=== PATIENT | male | born 1995 | race Caucasian/White ===

== ENCOUNTER 2017-06-23 18:55 | Emergency (ER) | payer BC ==
[2017-06-23] VITALS (7 sets, daily range): BP systolic 115–148; BP diastolic 65–88; PULSE 60–78; RESP 16–20; TEMP 98.8; O2SAT 99–100
[2017-06-23] MEDS ORDERED: ASPIRIN 325 MG TAB PO ONE (19:30)
[2017-06-23] MEDS ORDERED: SODIUM CHLORIDE 0.9% FLUSH 10 ML FLUSH IVF PRN (19:30)
[2017-06-23 19:45] LABS: AUTOMATED NEUTROPHIL # 5.4 TH/MM3 (1.8-7.7); BASOPHIL % 0.5 % (0.0-2.0); EOSINOPHIL # 0.1 TH/MM3 (0-0.4); EOSINOPHIL % 0.9 % (0.0-4.0); HEMATOCRIT 43.3 % (39.0-51.0); HEMOGLOBIN 14.1 GM/DL (13.0-17.0); LYMPH % 25.2 % (9.0-44.0); LYMPHOCYTE # 2.2 TH/MM3 (1.0-4.8); MEAN CELL VOLUME 86.1 FL (80.0-100.0); MEAN CORPUSCULAR HGB CONC 32.5 % (32.0-36.0); MEAN PLATELET VOLUME 7.4 FL (7.0-11.0); MONO % 11.3 % (0.0-8.0); NEUT % 62.1 % (16.0-70.0); PLATELET COUNT 335 TH/MM3 (150-450); RED BLOOD COUNT 5.02 MIL/MM3 (4.50-5.90); RED CELL DISTRIBUTION WIDTH 12.6 % (11.6-17.2); WHITE BLOOD COUNT 8.7 TH/MM3 (4.0-11.0)
[2017-06-23 20:05] LABS: CHLORIDE 106 MEQ/L (98-107); SODIUM (NA) 140 MEQ/L (136-145)
[2017-06-23 20:08] LABS: BICARBONATE 30.9 MEQ/L (21.0-32.0); BLOOD UREA NITROGEN 12 MG/DL (7-18); GLUCOSE,RANDOM 61 MG/DL (74-106); MAGNESIUM 2.1 MG/DL (1.5-2.5)
[2017-06-23 20:11] LABS: CREATININE 0.77 MG/DL (0.60-1.30); GLOMERULAR FILTRATION RATE 125 ML/MIN (>89)
[2017-06-23 20:16] LABS: TROPONIN I LESS THAN 0.02 NG/ML (0.02-0.05)
--- NOTE | 2017-06-23 20:24 | PD ---
HPI Chief Complaint: Chest Pain Time Seen by Provider: 19:24 Travel History International Travel<30 days: No Contact w/Intl Traveler<30days: No Traveled to known affect area: No History of Present Illness HPI 22-year-old male describes left-sided chest pain since yesterday. He denies pleuritic chest pain. There is no exertional component. The pain is located in the left chest towards the shoulder anteriorly. He has no shortness of breath fever or cough. No similar prior episodes. 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 PFSH Past Surgical History Other Surgery: Yes (EAR) Social History Alcohol Use: Yes Tobacco Use: Yes (1/2PPD) Substance Use: No Allergies-Medications (Allergen,Severity, Reaction): Coded Allergies: No Known Allergies (Unverified , 06/23/17) Reported Meds & Prescriptions Reported Meds & Active Scripts Active Ibuprofen 600 Mg Tab 600 Mg PO Q8HR PRN 14 Days Review of Systems Except as stated in HPI: all other systems reviewed are Neg General / Constitutional: No: Fever HENT: No: Headaches Physical Exam Narrative GENERAL: 22-year-old male well-nourished well-developed pleasant Vital Signs Date Time Temp Pulse Resp B/P (MAP) Pulse Ox O2 Delivery O2 Flow Rate FiO2 06/23/17 19:54 69 16 136/87 (103) 99 Room Air 06/23/17 19:43 Room Air 06/23/17 19:43 100 Room Air 06/23/17 19:28 Room Air 06/23/17 19:24 76 16 148/88 (108) 100 Room Air 06/23/17 19:11 98.8 78 20 121/72 (88) 100 SKIN: Warm and dry. HEAD: Atraumatic. Normocephalic. EYES: Pupils equal and round. No scleral icterus. No injection or drainage. ENT: No nasal bleeding or discharge. Mucous membranes pink and moist. NECK: Trachea midline. No JVD. CARDIOVASCULAR: Regular rate and rhythm. RESPIRATORY: No accessory muscle use. Clear to auscultation. Breath sounds equal bilaterally. GASTROINTESTINAL: Abdomen soft, non-tender, nondistended. Hepatic and splenic margins not palpable. MUSCULOSKELETAL: Extremities without clubbing, cyanosis, or edema. No obvious deformities. NEUROLOGICAL: Awake and alert. No obvious cranial nerve deficits. Motor grossly within normal limits. Five out of 5 muscle strength in the arms and legs. Normal speech. PSYCHIATRIC: Appropriate mood and affect; insight and judgment normal. Data Data Last Documented VS Vital Signs Date Time Temp Pulse Resp B/P (MAP) Pulse Ox O2 Delivery O2 Flow Rate FiO2 06/23/17 19:54 69 16 136/87 (103) 99 Room Air 06/23/17 19:11 98.8 Orders Orders Electrocardiogram (06/23/17 19:24) Basic Metabolic Panel (Bmp) (06/23/17 19:24) Complete Blood Count With Diff (06/23/17 19:24) Magnesium (Mg) (06/23/17 19:24) Ecg Monitoring (06/23/17 19:24) Bilateral Bp Monitoring (06/23/17 19:24) Iv Access Insert/Monitor (06/23/17 19:24) Oximetry (06/23/17 19:24) Oxygen Administration (06/23/17 19:24) Aspirin (Aspirin) (06/23/17 19:30) Sodium Chloride 0.9% Flush (Ns Flush) (06/23/17 19:30) Chest, Pa & Lat (06/23/17 19:24) Westergren Sedimentation Rate (06/23/17 19:52) Troponin I (06/23/17 19:35) Labs Laboratory Tests Test 06/23/17 19:35 White Blood Count 8.7 TH/MM3 Red Blood Count 5.02 MIL/MM3 Hemoglobin 14.1 GM/DL Hematocrit 43.3 % Mean Corpuscular Volume 86.1 FL Mean Corpuscular Hemoglobin 28.0 PG Mean Corpuscular Hemoglobin Concent 32.5 % Red Cell Distribution Width 12.6 % Platelet Count 335 TH/MM3 Mean Platelet Volume 7.4 FL Neutrophils (%) (Auto) 62.1 % Lymphocytes (%) (Auto) 25.2 % Monocytes (%) (Auto) 11.3 % Eosinophils (%) (Auto) 0.9 % Basophils (%) (Auto) 0.5 % Neutrophils # (Auto) 5.4 TH/MM3 Lymphocytes # (Auto) 2.2 TH/MM3 Monocytes # (Auto) 1.0 TH/MM3 Eosinophils # (Auto) 0.1 TH/MM3 Basophils # (Auto) 0.0 TH/MM3 CBC Comment DIFF FINAL Differential Comment Erythrocyte Sedimentation Rate 1 mm/hr Blood Urea Nitrogen 12 MG/DL Creatinine 0.77 MG/DL Random Glucose 61 MG/DL Calcium Level 9.0 MG/DL Magnesium Level 2.1 MG/DL Sodium Level 140 MEQ/L Potassium Level 3.4 MEQ/L Chloride Level 106 MEQ/L Carbon Dioxide Level 30.9 MEQ/L Anion Gap 3 MEQ/L Estimat Glomerular Filtration Rate 125 ML/MIN Troponin I LESS THAN 0.02 NG/ML MDM Medical Decision Making Medical Screen Exam Complete: Yes Emergency Medical Condition: Yes Medical Record Reviewed: Yes Differential Diagnosis NSTEMI, unstable angina, coronary vasospasm, PE, PTX, aortic dissection, pericarditis, myocarditis, endocarditis, PNA, esophageal disease, aneurysm, musculoskeletal etiologies, anxiety, cocaine/sympathomimetic abuse Narrative Course CBC & BMP Diagram 06/23/17 19:35 Calcium Level 9.0, Magnesium Level 2.1 Troponin is less than 0.[address] elevations and LA depressions in multiple leads initially concerning for pericarditis ESR 1 Pt stable for discharge. Presentation concerning for pericarditis. No sign impaired cardiac output on exam. Scripts as below. Pt verbalized understanding of return precautions and expected disease course. Diagnosis Primary Impression: Chest pain Qualified Codes: R07.9 - Chest pain, unspecified Additional Impression: Pericarditis Qualified Codes: I31.9 - Disease of pericardium, unspecified Referrals: Albert Wilson MD call for appointment Primary Care Physician call for appointment Med/Other Pt SpecificInfo: Prescription(s) given Scripts Colchicine (Colchicine) 0.6 Mg Tab 0.6 MG PO DAILY for Gout for 90 Days, #90 TAB 0 Refills Prov: Roberto Durbin MD 06/23/17 Ibuprofen (Ibuprofen) 600 Mg Tab 600 MG PO Q8HR Y for PAIN for 14 Days, TAB 0 Refills Prov: Roberto Durbin MD 06/23/17 Disposition: 01 DISCHARGE HOME Condition: Stable Roberto Durbin MD Jun 23, 2017 20:24
[2017-06-23] MEDS ORDERED: IBUP-232 PO (20:32)
[2017-06-23] MEDS ORDERED: COLC1TAB15 PO (20:36)
--- NOTE | 2017-06-23 20:48 | RADRPT ---
EXAM DATE/TIME: 06/23/2017 19:46 [facility] COMPARISON: No previous studies available for comparison. INDICATIONS : Chest pain. MEDICAL HISTORY : None. SURGICAL HISTORY : None. ENCOUNTER: Initial ACUITY: 1 day PAIN SCORE: 6/10 LOCATION: Bilateral chest FINDINGS: PA and lateral views of the chest demonstrate the lungs to be symmetrically aerated without evidence of mass, infiltrate or effusion. The cardiomediastinal contours are unremarkable. Osseous structure s are intact. CONCLUSION: No acute disease. Pavan Lyn MD on June 23, 2017 at 20:46 Board Certified Radiologist. This report was verified electronically.
--- NOTE | 2017-06-24 14:26 | EKG ---
Date Performed: 06/23/2017 Time Performed: 19:45:34 PTAGE: 22 years EKG: Sinus rhythm VOLTAGE CRITERIA FOR LVH ST-T segment elevation is noted diffusely. Consider pericarditis versus ear ly repolarization. ABNORMAL ECG NO PREVIOUS TRACING DOCTOR: Jesus Anderson Interpretating Date/Time 06/24/2017 14:24:10
== END 2017-06-23 21:15 | disposition home or self-care (01) ==
LOC: PHED 18:55
DX: R07.9 Chest pain, unspecified (principal); I31.9 Disease of pericardium, unspecified; R94.31 Abnormal electrocardiogram [ECG] [EKG]; F17.200 Nicotine dependence, unspecified, uncomplicated
CPT/HCPCS: 71046; 80048; 83735; 84484; 85025; 85652; 93005; 99285